=== PATIENT | female | born 1940 | race Caucasian/White ===

== ENCOUNTER 2020-02-04 04:36 | Emergency (ER) | payer MEDICARE, OTHER ==
[2020-02-04] MEDS ORDERED: Aspirin 81 MG Tab.Chew PO ONE (05:19)
--- NOTE | 2020-02-04 05:20 | EDM.PDOC ---
ED HPI GENERAL MEDICAL PROBLEM - General Chief Complaint: Chest Pain Stated Complaint: "dizzy and chest pain" Time Seen by Provider: 02/04/20 05:00 Source of Information: Reports: Patient History Limitations: Reports: No Limitations - History of Present Illness INITIAL COMMENTS - FREE TEXT/NARRATIVE: Patient presents to ER with complaints of chest pain and dizziness. States pain awoke her around 0100. Feels like "going to pass out". Rates pain a 10/ 10 to the midsternal area, gets worse when more lightheaded. Denies shortness of breath. States her CPAP hose had come off, not sure if associated with these symptoms. She states the pain and lightheadedness occurs together and once the pain passes, feels "fuzzy in the head". Has been eating and drinking well. Does take diuretics, has not noted any increase in edema. Had one syncopal episode in the past about 3 years ago but has not had issues since then. Onset: Today, Sudden Duration: Hour(s):, Constant Location: Reports: Chest Quality: Reports: Sharp Severity: Severe Worsens with: Reports: Movement Associated Symptoms: Reports: Chest Pain, Weakness, Other (lightheadedness). Denies: Confusion, Cough, Fever/Chills, Loss of Appetite, Nausea/Vomiting, Shortness of Breath - Related Data Allergies Allergy/AdvReac Type Severity Reaction Status Date / Time acetaminophen [From Tylenol] Allergy Muscle Verified 01/23/17 08:54 Weakness ciprofloxacin [From Cipro] Allergy Muscle Verified 01/23/17 08:54 Weakness fluocinonide Allergy Chills Verified 01/23/17 08:54 propoxyphene Allergy Chills Verified 01/23/17 08:54 Home Meds: Home Meds Aspirin [Halfprin] 81 mg PO DAILY 11/02/13 [History] Potassium Chloride 10 meq PO DAILY 11/02/13 [History] Torsemide 20 mg PO DAILY 01/23/17 [History] Febuxostat 40 mg PO DAILY 02/04/20 [History] Irbesartan 75 mg PO DAILY 02/04/20 [History] Rosuvastatin [Crestor] 10 mg PO DAILY 02/04/20 [History] calcitrioL [Calcitriol] 0.25 mcg PO DAILY 02/04/20 [History] Past Medical History - Past Health History Medical/Surgical History: Denies Medical/Surgical History Cardiovascular History: Reports: Hypertension - Past Surgical History Musculoskeletal Surgical History: Reports: Knee Replacement Social & Family History - Family History Family Medical History: Noncontributory - Tobacco Use Smoking Status *Q: Never Smoker ED ROS GENERAL - Review of Systems Review Of Systems: See Below Constitutional: Reports: Malaise, Weakness, Fatigue. Denies: Fever, Chills, Diaphoresis, Decreased Appetite HEENT: Reports: Vertigo. Denies: Ear Pain, Sinus Problem, Throat Pain Respiratory: Denies: Shortness of Breath, Cough Cardiovascular: Reports: Chest Pain, Edema, Lightheadedness Endocrine: Reports: Fatigue GI/Abdominal: Reports: Nausea. Denies: Abdominal Pain, Constipation, Diarrhea, Vomiting : Reports: No Symptoms Musculoskeletal: Reports: No Symptoms Skin: Reports: No Symptoms Neurological: Reports: Dizziness, Weakness ED EXAM, GENERAL - Physical Exam Exam: See Below Exam Limited By: No Limitations General Appearance: Alert, WD/WN, No Apparent Distress Ears: Normal External Exam, Normal TMs Nose: Normal Inspection, Normal Mucosa, No Blood Throat/Mouth: Normal Inspection, Normal Oropharynx Head: Normocephalic Neck: Normal Inspection, Supple, Non-Tender Respiratory/Chest: No Respiratory Distress, Lungs Clear, Normal Breath Sounds Cardiovascular: Regular Rate, Rhythm GI/Abdominal: Normal Bowel Sounds, Soft, Non-Tender Extremities: Normal Inspection, Pedal Edema (trace) Neurological: Alert, Oriented Skin Exam: Warm, Dry Course - Vital Signs Last Recorded V/S: Last Vital Signs Temp 97.3 F 02/04/20 07:20 Pulse 75 02/04/20 05:50 Resp 18 02/04/20 07:20 BP 151/64 H 02/04/20 07:20 Pulse Ox 100 02/04/20 07:20 Orthostatic Blood Pressure [ 162/84 Standing] Orthostatic Blood Pressure [ 164/79 Sitting] Orthostatic Blood Pressure [ 154/76 Supine] - Orders/Labs/Meds Orders: Active Orders 24 hr Category Date Time Status Cardiac Monitoring [RC] . DIRECTED Care 02/04/20 05:19 Active Orthostatic Vital Signs [RC] ASDIRECTED Care 02/04/20 05:50 Active Chest 2V [CR] Routine Exams 02/04/20 Taken Head wo Cont [CT] Stat Exams 02/04/20 05:17 Taken TROPONIN I [CHEM] Timed Lab 02/04/20 10:24 Received Sodium Chloride 0.9% [Normal Saline] 1,000 ml Med 02/04/20 06:00 Active IV ASDIRECTED EKG 12 Lead [EK] Routine Ther 02/04/20 10:00 Ordered Medication Orders Sodium Chloride (Normal Saline) 1,000 mls @ 100 mls/hr IV ASDIRECTED HARRY Last Admin: 02/04/20 06:30 Dose: 100 mls/hr Labs: Laboratory Tests 02/04/20 02/04/20 02/04/20 Range/Units 05:17 05:18 05:18 WBC 6.8 (5.0-10.0) 10^3/uL RBC 4.11 (4.00-5.50) 10^6/uL Hgb 11.9 L (12.0-16.0) g/dL Hct 35.3 L (37.0-47.0) % MCV 85.9 (82.0-94.0) fL MCH 29.0 (27.0-32.0) pg MCHC 33.7 (33.0-38.0) g/dL RDW Coeff of Enoc 13.9 (11.0-15.0) % Plt Count 195 (150-400) 10^3/uL Neut % (Auto) 60.5 (35-85) % Lymph % (Auto) 26.2 (10-55) % Lewis % (Auto) 9.1 (0-16) % Eos % (Auto) 3.5 (0-5) % Baso % (Auto) 0.7 (0-3) % Neut # (Auto) 4.12 (1.80-7.00) 10^3/uL Lymph # (Auto) 1.79 (1.00-4.80) 10^3/uL Lewis # (Auto) 0.62 (0.00-0.80) 10^3/uL Eos # (Auto) 0.24 (0.00-0.45) 10^3/uL Baso # (Auto) 0.05 10^3/uL PT 10.2 (9.7-12.3) SEC INR 1.01 (0.92-1.18) APTT 23.6 (23.2-32.3) SEC Sodium 138 (136-145) mEq/L Potassium 3.3 L (3.5-5.0) mEq/L Chloride 100 (98-106) mEq/L Carbon Dioxide 28 (21-32) mmol/L BUN 17 (7-18) mg/dL Creatinine 1.1 H (0.6-1.0) mg/dL Est Cr Clr Drug Dosing TNP Estimated GFR (MDRD) 48 L (>=60) mL/min Glucose 167 H (75-99) mg/dL Calcium 8.5 (8.4-10.1) mg/dL Lactate Dehydrogenase 181 (100-190) U/L Creatine Kinase 54 (21-215) U/L Troponin I < 0.017 (0.00-0.06) ng/mL Urine Color (YELLOW) Urine Appearance (CLEAR) Urine pH (4.5-8.0) Ur Specific [place] (1.003-1.020) Urine Protein (NEGATIVE) mg/dL Urine Glucose (UA) (NEGATIVE) mg/dL Urine Ketones (NEGATIVE) mg/dL Urine Occult Blood (NEGATIVE) Urine Nitrite (NEGATIVE) Urine Bilirubin (NEGATIVE) Urine Urobilinogen (0.2-1.0) EU/dL Ur Leukocyte Esterase (NEGATIVE) Urine RBC (0-5) /HPF Urine WBC (0-5) /HPF Ur Squamous Epith Cells (NOT SEEN) /HPF Urinalysis Comment 02/04/20 Range/Units 08:04 WBC (5.0-10.0) 10^3/uL RBC (4.00-5.50) 10^6/uL Hgb (12.0-16.0) g/dL Hct (37.0-47.0) % MCV (82.0-94.0) fL MCH (27.0-32.0) pg MCHC (33.0-38.0) g/dL RDW Coeff of Enoc (11.0-15.0) % Plt Count (150-400) 10^3/uL Neut % (Auto) (35-85) % Lymph % (Auto) (10-55) % Lewis % (Auto) (0-16) % Eos % (Auto) (0-5) % Baso % (Auto) (0-3) % Neut # (Auto) (1.80-7.00) 10^3/uL Lymph # (Auto) (1.00-4.80) 10^3/uL Lewis # (Auto) (0.00-0.80) 10^3/uL Eos # (Auto) (0.00-0.45) 10^3/uL Baso # (Auto) 10^3/uL PT (9.7-12.3) SEC INR (0.92-1.18) APTT (23.2-32.3) SEC Sodium (136-145) mEq/L Potassium (3.5-5.0) mEq/L Chloride (98-106) mEq/L Carbon Dioxide (21-32) mmol/L BUN (7-18) mg/dL Creatinine (0.6-1.0) mg/dL Est Cr Clr Drug Dosing Estimated GFR (MDRD) (>=60) mL/min Glucose (75-99) mg/dL Calcium (8.4-10.1) mg/dL Lactate Dehydrogenase (100-190) U/L Creatine Kinase (21-215) U/L Troponin I (0.00-0.06) ng/mL Urine Color Yellow (YELLOW) Urine Appearance Clear (CLEAR) Urine pH 6.0 (4.5-8.0) Ur Specific [place] 1.025 H (1.003-1.020) Urine Protein Negative (NEGATIVE) mg/dL Urine Glucose (UA) Negative (NEGATIVE) mg/dL Urine Ketones Negative (NEGATIVE) mg/dL Urine Occult Blood Negative (NEGATIVE) Urine Nitrite Negative (NEGATIVE) Urine Bilirubin Negative (NEGATIVE) Urine Urobilinogen 0.2 (0.2-1.0) EU/dL Ur Leukocyte Esterase Small H (NEGATIVE) Urine RBC Not seen (0-5) /HPF Urine WBC 5-10 H (0-5) /HPF Ur Squamous Epith Cells Few H (NOT SEEN) /HPF Urinalysis Comment Meds: Medications Generic Name Dose Route Start Last Admin Trade Name Freq PRN Reason Stop Dose Admin Sodium Chloride 1,000 mls @ 100 mls/hr 02/04/20 06:00 02/04/20 06:30 Normal Saline IV 100 mls/hr ASDIRECTED HARRY Administration Discontinued Medications Generic Name Dose Route Start Last Admin Trade Name Freq PRN Reason Stop Dose Admin Aspirin 324 mg 02/04/20 05:19 02/04/20 05:34 Aspirin PO 02/04/20 05:20 324 mg ONETIME ONE Administration - Re-Assessments/Exams Free Text/Narrative Re-Assessment/Exam: 02/04/20 10:48 Patient is feeling better, no further chest pain. Still "feels a little foggy in the head". Has been up to the bathroom and tolerating well. Head CT was negative. 1055- Troponin remains negative. patient would like to be discharged home. Will have cardiolyte next week. Discussed slow cautious movements. Push fluids. Return to ER if becomes more symptomatic Departure - Departure Time of Disposition: 10:58 Disposition: Home, Self-Care 01 Condition: Fair Clinical Impression: Atypical chest pain, Lightheadedness Referrals: Mariia Rios FIXTURE MAKER [Primary Care Provider] - Forms: ED Department Discharge Additional Instructions: 1. Rest 2. Slow, cautious movements 3. Push fluids 4. Cardiolyte stress test next , February 09 at 0700 5. Follow up with Mariia on February 07 at 2 pm 6. Return to the ER if develop further chest pain, shortness of breath or ongoing lightheadedness. Sepsis Event Note (ED) - Focused Exam Vital Signs: Vital Signs Temp Pulse Resp BP Pulse Ox 02/04/20 07:20 97.3 F 18 151/64 H 100 02/04/20 05:50 97.6 F 75 20 139/68 99 - My Orders Last 24 Hours: My Active Orders 02/04/20 Chest 2V [CR] Routine 02/04/20 05:17 Head wo Cont [CT] Stat 02/04/20 05:19 Cardiac Monitoring [RC] . DIRECTED 02/04/20 05:50 Orthostatic Vital Signs [RC] ASDIRECTED 02/04/20 06:00 Sodium Chloride 0.9% [Normal Saline] 1,000 ml IV ASDIRECTED 02/04/20 10:00 EKG 12 Lead [EK] Routine 02/04/20 10:24 TROPONIN I [CHEM] Timed - Assessment/Plan Last 24 Hours: My Active Orders 02/04/20 Chest 2V [CR] Routine 02/04/20 05:17 Head wo Cont [CT] Stat 02/04/20 05:19 Cardiac Monitoring [RC] . DIRECTED 02/04/20 05:50 Orthostatic Vital Signs [RC] ASDIRECTED 06/12/20 06:00 Sodium Chloride 0.9% [Normal Saline] 1,000 ml IV ASDIRECTED 02/04/20 10:00 EKG 12 Lead [EK] Routine 02/04/20 10:24 TROPONIN I [CHEM] Timed
[2020-02-04 05:33] LABS: PTT,PARTIAL THROMBOPLSTIN TIME 23.6 SEC (23.2-32.3)
[2020-02-04 05:36] LABS: CHLORIDE,CL 100 mEq/L (98-106); SODIUM,NA 138 mEq/L (136-145)
[2020-02-04] MEDS ORDERED: Sodium Chloride 0.9% 1,000 ML IV SCH (06:00)
[2020-02-04 06:26] VITALS: PULSE 75
[2020-02-04 07:21] VITALS: BP 151/64
== END 2020-02-04 11:25 | disposition home or self-care (01) ==
LOC: CC.ED 04:36
DX: R07.89 Other chest pain (principal); R42 Dizziness and giddiness; Z88.6 Allergy status to analgesic agent; Z88.1 Allergy status to other antibiotic agents; Z88.8 Allergy status to other drugs, medicaments and biological substances; Z79.82 Long term (current) use of aspirin; Z79.899 Other long term (current) drug therapy
CPT/HCPCS: 36415; 70450; 71046; 80048; 81001; 82550; 83615; 84484; 85025; 85610; 85730; 93005; 96360; 96361; 99284; 99285; A9270; J7030; 93010

== ENCOUNTER 2020-08-15 18:04 | Emergency (ER) | payer MEDICARE, OTHER ==
[2020-08-15 18:09] VITALS: BP 184/89; PULSE 70
--- NOTE | 2020-08-15 19:00 | EDM.PDOC ---
ED HPI GENERAL MEDICAL PROBLEM - General Chief Complaint: General Stated Complaint: dizzy Time Seen by Provider: 08/15/20 18:25 Source of Information: Reports: Patient History Limitations: Reports: No Limitations - History of Present Illness INITIAL COMMENTS - FREE TEXT/NARRATIVE: Tasia is a 79 yo female who presents to the ED, via private vehicle, dropped off by a family member with concerns of being lightheaded. She states symptoms started late this morning and haven't seemed to improved at all. States upon walking symptoms are the worst. While at rest symptoms do improve but are still present. She denies any headaches and admits she has never had a headache all her life. Does describe a fullness sensation in her head that started with the dizziness. Denies any sinus congestion or recent cold symptoms. States she has a history of high blood pressure but does take medicine for it. Denies any ringing in her ears. Denies any chest pain or palpitations. States she did have a little bit of a sore neck. No shortness of breath. Denies any changes in bowel habits, no abdominal complaints. No UTI symptoms or history. - Related Data Allergies Allergy/AdvReac Type Severity Reaction Status Date / Time acetaminophen [From Tylenol] AdvReac Muscle Verified 08/15/20 18:15 Weakness ciprofloxacin [From Cipro] AdvReac Muscle Verified 08/15/20 18:15 Weakness fluocinonide AdvReac Chills Verified 08/15/20 18:15 propoxyphene AdvReac Chills Verified 08/15/20 18:15 Home Meds: Home Meds Aspirin [Halfprin] 81 mg PO DAILY 11/02/13 [History] Potassium Chloride 10 meq PO DAILY 11/02/13 [History] Torsemide 20 mg PO DAILY 01/23/17 [History] Irbesartan 75 mg PO DAILY 02/04/20 [History] Rosuvastatin [Crestor] 10 mg PO DAILY 02/04/20 [History] calcitrioL [Calcitriol] 0.25 mcg PO DAILY 02/04/20 [History] Alendronate Sodium 70 mg PO DAILY 02/10/20 [History] Magnesium Oxide 500 mg PO DAILY 02/10/20 [History] Past Medical History - Past Health History Medical/Surgical History: Denies Medical/Surgical History HEENT History: Reports: Allergic Rhinitis, Cataract, Impaired Vision Cardiovascular History: Reports: High Cholesterol, Hypertension Respiratory History: Reports: None, Sleep Apnea Gastrointestinal History: Reports: Chronic Constipation, Irritable Bowel Syndrome Genitourinary History: Reports: Renal Disease Musculoskeletal History: Reports: Gout, Osteoporosis Endocrine/Metabolic History: Reports: Vitamin D Deficiency - Past Surgical History HEENT Surgical History: Reports: Cataract Surgery Cardiovascular Surgical History: Reports: Pacer GI Surgical History: Reports: Appendectomy, Hernia, Abdominal Neurological Surgical History: Reports: C-Spine Musculoskeletal Surgical History: Reports: Knee Replacement Other Musculoskeletal Surgeries/Procedures:: BACK SURGERY Social & Family History - Family History Family Medical History: No Pertinent Family History - Tobacco Use Tobacco Use Status *Q: Never Tobacco User Second Hand Smoke Exposure: No - Caffeine Use Caffeine Use: Reports: None - Recreational Drug Use Recreational Drug Use: No ED ROS GENERAL - Review of Systems Review Of Systems: Comprehensive ROS is negative, except as noted in HPI. Constitutional: Reports: No Symptoms HEENT: Denies: Vertigo, Vision Change Respiratory: Reports: No Symptoms Cardiovascular: Reports: Lightheadedness. Denies: Palpitations GI/Abdominal: Reports: No Symptoms : Reports: No Symptoms Musculoskeletal: Reports: No Symptoms Skin: Reports: No Symptoms ED EXAM, GENERAL - Physical Exam Exam: See Below Exam Limited By: No Limitations General Appearance: Alert, WD/WN, No Apparent Distress Eye Exam: Bilateral Eye: EOMI, Nystagmus, PERRL Ears: Normal External Exam, Normal Canal, Normal TMs Nose: Normal Inspection, No Blood Throat/Mouth: Normal Inspection, Normal Lips, Normal Teeth, Normal Oropharynx, No Airway Compromise Head: Atraumatic, Normocephalic Neck: Normal Inspection, Supple Respiratory/Chest: No Respiratory Distress, Lungs Clear, Normal Breath Sounds, No Accessory Muscle Use Cardiovascular: Regular Rate, Rhythm, No Murmur Peripheral Pulses: 2+: Dorsalis Pedis (L), Dorsalis Pedis (R) GI/Abdominal: Normal Bowel Sounds, Soft, No Distention Extremities: Normal Inspection, Non-Tender Neurological: Alert, Oriented, Normal Cognition, No Motor/Sensory Deficits Psychiatric: Normal Affect, Normal Mood Skin Exam: Warm, Dry, Intact, Normal Color, No Rash #1 Interpretation Rhythm: Other (electronic atrial pacemaker) Comparison: NA - No Prior EKG Course - Vital Signs Last Recorded V/S: Last Vital Signs Temp 98 F 08/15/20 18:05 Pulse 70 08/15/20 18:05 Resp 20 08/15/20 18:05 BP 184/89 H 08/15/20 18:05 Pulse Ox - Orders/Labs/Meds Orders: Active Orders 24 hr Category Date Time Status Head wo Cont [CT] Stat Exams 08/15/20 18:42 Taken CULTURE URINE [RM] Stat Lab 08/15/20 19:25 Received Labs: Laboratory Tests 08/15/20 08/15/20 08/15/20 Range/Units 19:25 19:25 19:25 WBC 8.2 (5.0-10.0) 10^3/uL RBC 4.29 (4.00-5.50) 10^6/uL Hgb 12.3 (12.0-16.0) g/dL Hct 36.0 L (37.0-47.0) % MCV 83.9 (82.0-94.0) fL MCH 28.7 (27.0-32.0) pg MCHC 34.2 (33.0-38.0) g/dL RDW Coeff of Enoc 13.9 (11.0-15.0) % Plt Count 219 (150-400) 10^3/uL Neut % (Auto) 57.6 (35-85) % Lymph % (Auto) 31.5 (10-55) % [place] % (Auto) 8.0 (0-16) % Eos % (Auto) 2.3 (0-5) % Baso % (Auto) 0.6 (0-3) % Neut # (Auto) 4.71 (1.80-7.00) 10^3/uL Lymph # (Auto) 2.57 (1.00-4.80) 10^3/uL [place] # (Auto) 0.65 (0.00-0.80) 10^3/uL Eos # (Auto) 0.19 (0.00-0.45) 10^3/uL Baso # (Auto) 0.05 10^3/uL Sodium 134 L (136-145) mEq/L Potassium 3.7 (3.5-5.0) mEq/L Chloride 96 L (98-106) mEq/L Carbon Dioxide 27 (21-32) mmol/L BUN 23 H (7-18) mg/dL Creatinine 1.1 H (0.6-1.0) mg/dL Est Cr Clr Drug Dosing 35.81 mL/min Estimated GFR (MDRD) 48 L (>=60) mL/min Glucose 196 H (75-99) mg/dL Calcium 9.8 (8.4-10.1) mg/dL Total Bilirubin 0.5 (0.0-1.0) mg/dL AST 13 L (15-37) U/L ALT 20 (12-78) U/L Alkaline Phosphatase 63 (46-116) U/L Creatine Kinase 39 (21-215) U/L Troponin I < 0.017 (0.00-0.06) ng/mL Total Protein 7.8 (6.4-8.2) g/dL Albumin 3.8 (3.4-5.0) g/dL Urine Color Yellow (YELLOW) Urine Appearance Cloudy (CLEAR) Urine pH 5.5 (4.5-8.0) Ur Specific [place] 1.020 (1.003-1.020) Urine Protein Negative (NEGATIVE) mg/dL Urine Glucose (UA) 250 H (NEGATIVE) mg/dL Urine Ketones Negative (NEGATIVE) mg/dL Urine Occult Blood Negative (NEGATIVE) Urine Nitrite Negative (NEGATIVE) Urine Bilirubin Negative (NEGATIVE) Urine Urobilinogen 0.2 (0.2-1.0) EU/dL Ur Leukocyte Esterase Moderate H (NEGATIVE) U Hyaline Cast (Auto) Few H (NOT SEEN) /LPF Urine RBC 0-5 (0-5) /HPF Urine WBC 20-30 H (0-5) /HPF Ur Epithelial Cells Few H (NOT SEEN) /HPF Urine Bacteria Moderate H (NOT SEEN) /HPF Departure - Departure Time of Disposition: 19:55 Disposition: Home, Self-Care 01 Clinical Impression: UTI, Urinary tract infectious disease, Lightheadedness - Discharge Information Instructions: Urinary Tract Infection, Adult, [id number], Dizziness, [id number] Referrals: Mariia Rios INTERVENTIONAL RADIOLOGIST [Primary Care Provider] - Forms: ED Department Discharge Additional Instructions: 1) Macrobid 100mg twice a day for 7 days 2) Push fluids 3) Refrain from taking baths, recommend showering as long as steady of feet 4) If any fevers, worsening of symptoms, or any concerns at all please return to ED for re-evaluation 5) Sepsis Event Note (ED) - Evaluation Sepsis Screening Result: No Definite Risk - Focused Exam Vital Signs: Vital Signs Temp Pulse Resp BP 08/15/20 18:05 98 F 70 20 184/89 H - Problem List & Annotations (1) Lightheadedness SNOMED Code(s): 644119203 Code(s): R42 - DIZZINESS AND GIDDINESS Status: Acute Current Visit: Yes (2) UTI, Urinary tract infectious disease SNOMED Code(s): 51618156 Code(s): N39.0 - URINARY TRACT INFECTION, SITE NOT SPECIFIED Status: Acute Current Visit: Yes - My Orders Last 24 Hours: My Active Orders 08/15/20 18:42 Head wo Cont [CT] Stat 08/15/20 19:25 CULTURE URINE [RM] Stat - Assessment/Plan Last 24 Hours: My Active Orders 08/15/20 18:42 Head wo Cont [CT] Stat 08/15/20 19:25 CULTURE URINE [RM] Stat Plan: Urinalysis was positive. Culture ordered. Labs otherwise unremarkable. EKG showed atrial paced rhythm. CT head negative. Will start oral antibiotic. Patient declined observation stay today. Requests to be discharged home and admitted she felt safe at home. Signs and symptoms to watch for discussed into detail.
[2020-08-15] MEDS ORDERED: Nitrofurantoin Monohydrate/Macrocrystalline 100 MG Cap ONE (19:41)
[2020-08-15 19:48] LABS: CHLORIDE,CL 96 mEq/L (98-106); SODIUM,NA 134 mEq/L (136-145)
[2020-08-15] MEDS: Take Home: Nitrofurantoin Monohydrate/Macrocrystalline 100 MG, 2 Cap Pack PO ONE (20:01)
== END 2020-08-15 20:03 | disposition home or self-care (01) ==
LOC: CC.ED 18:04
DX: R42 Dizziness and giddiness (principal); N39.0 Urinary tract infection, site not specified; E78.00 Pure hypercholesterolemia, unspecified; I10 Essential (primary) hypertension; M10.9 Gout, unspecified; Z79.82 Long term (current) use of aspirin; Z79.899 Other long term (current) drug therapy; Z88.6 Allergy status to analgesic agent; Z88.1 Allergy status to other antibiotic agents; Z88.8 Allergy status to other drugs, medicaments and biological substances
CPT/HCPCS: 36415; 70450; 80053; 81001; 82550; 84484; 85025; 87086; 93005; 99284; 99284-25; A9270-GY

== ENCOUNTER 2023-10-02 08:49 | Emergency (ER) | payer MEDICARE, OTHER ==
[2023-10-02 08:53] VITALS: BP 178/76; PULSE 66
[2023-10-02] MEDS: Ketorolac 30 MG/ML SDV IM ONE (09:22)
== END 2023-10-02 10:04 | disposition home or self-care (01) ==
LOC: CC.ED 08:49
DX: M54.16 Radiculopathy, lumbar region (principal); I10 Essential (primary) hypertension; E78.00 Pure hypercholesterolemia, unspecified; Z88.1 Allergy status to other antibiotic agents; Z88.5 Allergy status to narcotic agent; Z88.6 Allergy status to analgesic agent
CPT/HCPCS: 96372; 99283; J1885

== ENCOUNTER 2024-08-23 11:30 | Emergency (ER) | payer MEDICARE, OTHER ==
[2024-08-23 12:18] LABS: BASOPHILS ABSOLUTE AUTO 0.06 10^3/uL (0.00-0.50); BASOPHILS PERCENT AUTO 0.7 % (0-1); EOSINOPHILS ABSOLUTE AUTO 0.22 10^3/uL (0.00-1.50); EOSINOPHILS PERCENT AUTO 2.6 % (0-6); HEMATOCRIT 37.6 % (37.0-47.0); HEMOGLOBIN 12.4 g/dL (12.0-16.0); IMMATURE GRAN ABSOLUTE AUTO 0.01 10^3/uL (0.00-0.49); IMMATURE GRAN PERCENT AUTO 0.1 % (0.0-4.9); LYMPHOCYTES ABSOLUTE AUTO 2.14 10^3/uL (0.60-5.00); LYMPHOCYTES PERCENT AUTO 24.8 % (24-44); MEAN CORPUSCULAR HEMOGLOBIN 28.9 pg (27.0-32.0); MEAN CORPUSCULAR VOLUME 87.6 fL (83.0-97.0); MONOCYTES ABSOLUTE AUTO 0.75 10^3/uL (0.00-1.50); MONOCYTES PERCENT AUTO 8.7 % (0-10); NEUTROPHILS ABSOLUTE AUTO 5.44 x10^3/uL (1.80-8.00); NEUTROPHILS PERCENT AUTO 63.1 % (41-71); PLATELET COUNT,PLT 191 10^3/uL (150-400); RED BLOOD CELL COUNT 4.29 x10^6/uL (4.00-5.50); WHITE BLOOD CELL COUNT,WBC 8.6 10^3/uL (4.0-11.0)
[2024-08-23 12:31] LABS: ALBUMIN 3.6 g/dL (3.4-5.0); BILIRUBIN TOTAL 0.5 mg/dL (0.0-1.0); C-REACTIVE PROTEIN 1.73 mg/dL (<=0.50); CALCIUM 9.7 mg/dL (8.4-10.1); CREATININE 1.1 mg/dL (0.6-1.0); EST CRCL DRUG DOSING (CG) 32.06 mL/min; POTASSIUM,K 4.4 mEq/L (3.5-5.0); PROTEIN TOTAL,TP 7.3 g/dL (6.4-8.2)
[2024-08-23] MEDS: Morphine 2 MG/ML SYRINGE IVPUSH ONE (12:32)
[2024-08-23] MEDS: Ondansetron 4 MG/2 ML SDV IVPUSH PRN (12:33)
[2024-08-23] MEDS: Sodium Chloride 0.9% 1,000 ML IV ONE (12:41)
[2024-08-23 12:44] VITALS: BP 154/72; PULSE 79
[2024-08-23] MEDS: Iopamidol 755 Mg/ML 100 ML Bottle IVPUSH ONE (12:57)
[2024-08-23 15:09] LABS: APPEARANCE,URINE CLEAR (CLEAR); BILIRUBIN,URINE NEGATIVE (NEGATIVE); COLOR,URINE YELLOW (YELLOW); GLUCOSE,URINE 500 mg/dL (NEGATIVE); KETONES,URINE NEGATIVE (NEGATIVE); LEUKOCYTE ESTERASE,URINE NEGATIVE (NEGATIVE); NITRITE,URINE NEGATIVE (NEGATIVE); OCCULT BLOOD,URINE NEGATIVE (NEGATIVE); PROTEIN,URINE NEGATIVE (NEGATIVE); UROBILINOGEN,URINE 0.2 EU/dL (0.2-1.0)
== END 2024-08-23 15:51 | disposition home or self-care (01) ==
LOC: CC.ED 11:30
DX: K57.32 Diverticulitis of large intestine without perforation or abscess without bleeding (principal); I10 Essential (primary) hypertension; E78.00 Pure hypercholesterolemia, unspecified; Z90.49 Acquired absence of other specified parts of digestive tract; Z88.6 Allergy status to analgesic agent; Z88.8 Allergy status to other drugs, medicaments and biological substances; Z79.82 Long term (current) use of aspirin; Z79.84 Long term (current) use of oral hypoglycemic drugs; Z79.899 Other long term (current) drug therapy
CPT/HCPCS: 36415; 74177; 80053; 81003; 83605; 83690; 83735; 85025; 86140; 87045; 87046; 87493; 96361; 96374; 96375; 99284; 99284-25; J2270; J2405; J7030; Q9967

== ENCOUNTER 2024-08-31 12:41 | Inpatient (IN) | payer MEDICARE, OTHER ==
[2024-08-31] MEDS ORDERED: Sodium Chloride 0.9% 10 ML Syringe FLUSH PRN (12:58)
[2024-08-31 13:21] LABS: BASOPHILS ABSOLUTE AUTO 0.06 10^3/uL (0.00-0.50); BASOPHILS PERCENT AUTO 0.8 % (0-1); EOSINOPHILS ABSOLUTE AUTO 0.13 10^3/uL (0.00-1.50); EOSINOPHILS PERCENT AUTO 1.7 % (0-6); HEMATOCRIT 38.3 % (37.0-47.0); HEMOGLOBIN 12.8 g/dL (12.0-16.0); IMMATURE GRAN ABSOLUTE AUTO 0.02 10^3/uL (0.00-0.49); IMMATURE GRAN PERCENT AUTO 0.3 % (0.0-4.9); LYMPHOCYTES ABSOLUTE AUTO 2.28 10^3/uL (0.60-5.00); LYMPHOCYTES PERCENT AUTO 29.2 % (24-44); MEAN CORPUSCULAR HEMOGLOBIN 28.7 pg (27.0-32.0); MEAN CORPUSCULAR HGB CONC 33.4 g/dL (32.0-36.0); MEAN CORPUSCULAR VOLUME 85.9 fL (83.0-97.0); MONOCYTES ABSOLUTE AUTO 0.61 10^3/uL (0.00-1.50); MONOCYTES PERCENT AUTO 7.8 % (0-10); NEUTROPHILS ABSOLUTE AUTO 4.72 x10^3/uL (1.80-8.00); NEUTROPHILS PERCENT AUTO 60.2 % (41-71); PLATELET COUNT,PLT 261 10^3/uL (150-400); RED BLOOD CELL COUNT 4.46 x10^6/uL (4.00-5.50); WHITE BLOOD CELL COUNT,WBC 7.8 10^3/uL (4.0-11.0)
[2024-08-31 13:41] LABS: ALANINE AMINOTRANSFERASE,ALT 27 U/L (12-78); ALBUMIN 4.2 g/dL (3.4-5.0); ALKALINE PHOSPHATASE 51 U/L (46-116); ASPARTATE AMNIOTRANSFERASE,AST 29 U/L (15-37); BILIRUBIN TOTAL 0.5 mg/dL (0.0-1.0); BLOOD UREA NITROGEN,BUN 22 mg/dL (7-18); CALCIUM 9.6 mg/dL (8.4-10.1); CARBON DIOXIDE,CO2 30 mmol/L (21-32); CHLORIDE,CL 98 mEq/L (98-106); CREATININE 1.1 mg/dL (0.6-1.0); GLUCOSE RANDOM 100 mg/dL (75-99); LIPASE 41 U/L (16-77); POTASSIUM,K 3.5 mEq/L (3.5-5.0); PROTEIN TOTAL,TP 7.9 g/dL (6.4-8.2); SODIUM,NA 139 mEq/L (136-145)
[2024-08-31 13:42] LABS: C-REACTIVE PROTEIN < 0.50 mg/dL (<=0.50); ESTIMATED GFR 50 mL/min (>=60)
[2024-08-31 13:43] LABS: LACTIC ACID 1.6 mmol/L (0.4-2.0)
[2024-08-31] MEDS ORDERED: Ondansetron 4 MG/2 ML SDV IV PRN (14:10)
[2024-08-31] MEDS ORDERED: oxyCODONE 5 MG Tab PO PRN (14:10)
[2024-08-31] MEDS ORDERED: Naloxone 2 MG/2 ML Syringe IVPUSH PRN (14:10)
[2024-08-31] MEDS ORDERED: Fluticasone NASAL Spray 16 GM Bottle NASBOTH PRN (14:18)
[2024-08-31] MEDS: metroNIDAZOLE/Normal Saline 500 MG in Premix Bag 1 BAG IV SCH (14:37)
[2024-08-31] MEDS: Cefepime 2 GM Vial IVPUSH SCH (15:57)
[2024-08-31 16:19] LABS: APPEARANCE,URINE CLEAR (CLEAR); BILIRUBIN,URINE NEGATIVE (NEGATIVE); COLOR,URINE YELLOW (YELLOW); GLUCOSE,URINE 500 mg/dL (NEGATIVE); KETONES,URINE NEGATIVE (NEGATIVE); LEUKOCYTE ESTERASE,URINE TRACE (NEGATIVE); NITRITE,URINE NEGATIVE (NEGATIVE); OCCULT BLOOD,URINE NEGATIVE (NEGATIVE); PH,URINE 5.5 (4.5-8.0); PROTEIN,URINE NEGATIVE (NEGATIVE); UROBILINOGEN,URINE 0.2 EU/dL (0.2-1.0)
[2024-08-31 16:24] LABS: RBC,URINE NOT SEEN /HPF (0-5); SQUAMOUS EPITHELIAL CELLS,UR OCCASIONAL /HPF (NOT SEEN); WBC,URINE 0-5 /HPF (0-5)
[2024-08-31 16:25] LABS: BACTERIA,URINE NOT SEEN /HPF (NOT SEEN)
[2024-09-01] MEDS: Cholecalciferol (Vitamin D3) 25 MCG Tab PO SCH (07:46)
[2024-09-01] MEDS: Enoxaparin 40 MG/0.4 ML Syringe SUBCUT SCH (07:46)
[2024-09-01] MEDS: Calcium Carbonate/Vitamin D3 1250 MG-5 MCG Tab PO SCH (07:47)
[2024-09-01] MEDS: metFORMIN 500 MG Tab PO SCH (07:47)
[2024-09-01] MEDS: Allopurinol 100 MG Tab PO SCH (07:47)
[2024-09-01] MEDS: Aspirin 81 MG Tab.EC PO SCH (07:47)
[2024-09-01] MEDS: Rosuvastatin 10 MG Tab PO SCH (07:47)
[2024-09-01] MEDS: Calcitriol 0.25 MCG Cap PO SCH (07:48)
[2024-09-01] MEDS: Torsemide 20 MG Tab PO SCH (07:48)
[2024-09-01] MEDS: Lactobacillus Rhamnosus GG (Probiotic) Cap PO SCH (07:48)
[2024-09-01] MEDS: Empagliflozin 10 MG Tab PO SCH (07:48)
[2024-09-01] MEDS: Losartan 25 MG Tab PO SCH (07:48)
[2024-09-01] MEDS: Magnesium Oxide 400 MG Tab PO SCH (07:48)
[2024-09-01] MEDS: Potassium Chloride 10 MEQ Tab.ER PO SCH (07:48)
[2024-09-01 07:56] LABS: BASOPHILS ABSOLUTE AUTO 0.04 10^3/uL (0.00-0.50); BASOPHILS PERCENT AUTO 0.5 % (0-1); EOSINOPHILS ABSOLUTE AUTO 0.15 10^3/uL (0.00-1.50); HEMATOCRIT 37.8 % (37.0-47.0); HEMOGLOBIN 12.8 g/dL (12.0-16.0); LYMPHOCYTES ABSOLUTE AUTO 1.69 10^3/uL (0.60-5.00); MEAN CORPUSCULAR HEMOGLOBIN 29.1 pg (27.0-32.0); MEAN CORPUSCULAR HGB CONC 33.9 g/dL (32.0-36.0); MEAN CORPUSCULAR VOLUME 85.9 fL (83.0-97.0); MONOCYTES ABSOLUTE AUTO 0.54 10^3/uL (0.00-1.50); MONOCYTES PERCENT AUTO 7.3 % (0-10); NEUTROPHILS ABSOLUTE AUTO 4.94 x10^3/uL (1.80-8.00); NEUTROPHILS PERCENT AUTO 67.2 % (41-71); PLATELET COUNT,PLT 250 10^3/uL (150-400); WHITE BLOOD CELL COUNT,WBC 7.4 10^3/uL (4.0-11.0)
[2024-09-01] MEDS ORDERED: Non-Formulary Medication 1 Each (Terbinafine Hcl [Terbinafine Hcl] 250 MG Tablet) PO SCH (08:00)
[2024-09-01] MEDS ORDERED: metFORMIN 500 MG Tab PO SCH (08:00)
[2024-09-01 08:21] LABS: ALANINE AMINOTRANSFERASE,ALT 29 U/L (12-78); ALBUMIN 3.8 g/dL (3.4-5.0); ALKALINE PHOSPHATASE 51 U/L (46-116); ASPARTATE AMNIOTRANSFERASE,AST 29 U/L (15-37); BILIRUBIN TOTAL 0.6 mg/dL (0.0-1.0); BLOOD UREA NITROGEN,BUN 16 mg/dL (7-18); CALCIUM 9.2 mg/dL (8.4-10.1); CARBON DIOXIDE,CO2 30 mmol/L (21-32); CHLORIDE,CL 101 mEq/L (98-106); CREATININE 1.1 mg/dL (0.6-1.0); EST CRCL DRUG DOSING (CG) 31.49 mL/min; GLUCOSE RANDOM 124 mg/dL (75-99); POTASSIUM,K 4.6 mEq/L (3.5-5.0); PROTEIN TOTAL,TP 7.3 g/dL (6.4-8.2); SODIUM,NA 139 mEq/L (136-145)
[2024-09-01 08:40] LABS: C-REACTIVE PROTEIN < 0.50 mg/dL (<=0.50); ESTIMATED GFR 50 mL/min (>=60)
[2024-09-02 08:07] LABS: BASOPHILS ABSOLUTE AUTO 0.05 10^3/uL (0.00-0.50); BASOPHILS PERCENT AUTO 0.5 % (0-1); EOSINOPHILS ABSOLUTE AUTO 0.07 10^3/uL (0.00-1.50); EOSINOPHILS PERCENT AUTO 0.7 % (0-6); HEMATOCRIT 39.1 % (37.0-47.0); HEMOGLOBIN 13.1 g/dL (12.0-16.0); IMMATURE GRAN ABSOLUTE AUTO 0.02 10^3/uL (0.00-0.49); IMMATURE GRAN PERCENT AUTO 0.2 % (0.0-4.9); LYMPHOCYTES ABSOLUTE AUTO 2.37 10^3/uL (0.60-5.00); LYMPHOCYTES PERCENT AUTO 24.1 % (24-44); MEAN CORPUSCULAR HEMOGLOBIN 28.7 pg (27.0-32.0); MEAN CORPUSCULAR HGB CONC 33.5 g/dL (32.0-36.0); MEAN CORPUSCULAR VOLUME 85.7 fL (83.0-97.0); MONOCYTES ABSOLUTE AUTO 0.73 10^3/uL (0.00-1.50); MONOCYTES PERCENT AUTO 7.4 % (0-10); NEUTROPHILS ABSOLUTE AUTO 6.61 x10^3/uL (1.80-8.00); NEUTROPHILS PERCENT AUTO 67.1 % (41-71); PLATELET COUNT,PLT 259 10^3/uL (150-400); RED BLOOD CELL COUNT 4.56 x10^6/uL (4.00-5.50); WHITE BLOOD CELL COUNT,WBC 9.9 10^3/uL (4.0-11.0)
[2024-09-02 08:38] LABS: ALBUMIN 3.8 g/dL (3.4-5.0); BILIRUBIN TOTAL 0.7 mg/dL (0.0-1.0); C-REACTIVE PROTEIN 1.62 mg/dL (<=0.50); CALCIUM 9.4 mg/dL (8.4-10.1); CREATININE 1.1 mg/dL (0.6-1.0); EST CRCL DRUG DOSING (CG) 31.49 mL/min; PROTEIN TOTAL,TP 7.6 g/dL (6.4-8.2)
[2024-09-03] MEDS: HYDROmorphone 0.5 MG/0.5 ML Syringe IVPUSH PRN (04:10)
[2024-09-03] MEDS: Sodium Chloride 0.9% 250 ML IV SCH (07:33)
[2024-09-03 07:35] LABS: BASOPHILS ABSOLUTE AUTO 0.06 10^3/uL (0.00-0.50); BASOPHILS PERCENT AUTO 0.8 % (0-1); EOSINOPHILS ABSOLUTE AUTO 0.14 10^3/uL (0.00-1.50); EOSINOPHILS PERCENT AUTO 1.9 % (0-6); HEMATOCRIT 37.9 % (37.0-47.0); IMMATURE GRAN ABSOLUTE AUTO 0.02 10^3/uL (0.00-0.49); IMMATURE GRAN PERCENT AUTO 0.3 % (0.0-4.9); LYMPHOCYTES ABSOLUTE AUTO 1.97 10^3/uL (0.60-5.00); LYMPHOCYTES PERCENT AUTO 27.4 % (24-44); MEAN CORPUSCULAR HEMOGLOBIN 29.1 pg (27.0-32.0); MEAN CORPUSCULAR HGB CONC 34.3 g/dL (32.0-36.0); MEAN CORPUSCULAR VOLUME 84.8 fL (83.0-97.0); MONOCYTES ABSOLUTE AUTO 0.56 10^3/uL (0.00-1.50); MONOCYTES PERCENT AUTO 7.8 % (0-10); NEUTROPHILS ABSOLUTE AUTO 4.44 x10^3/uL (1.80-8.00); NEUTROPHILS PERCENT AUTO 61.8 % (41-71); PLATELET COUNT,PLT 246 10^3/uL (150-400); RED BLOOD CELL COUNT 4.47 x10^6/uL (4.00-5.50); WHITE BLOOD CELL COUNT,WBC 7.2 10^3/uL (4.0-11.0)
[2024-09-03 07:38] LABS: ALBUMIN 3.6 g/dL (3.4-5.0); BILIRUBIN TOTAL 0.8 mg/dL (0.0-1.0); C-REACTIVE PROTEIN 3.63 mg/dL (<=0.50); EST CRCL DRUG DOSING (CG) 34.64 mL/min; POTASSIUM,K 3.3 mEq/L (3.5-5.0); PROTEIN TOTAL,TP 7.4 g/dL (6.4-8.2)
[2024-09-03] MEDS ORDERED: Lidocaine 2% 20 ML MDV ONE (07:40)
[2024-09-03] MEDS ORDERED: Propofol 200 MG/20 ML SDV ONE (07:40)
[2024-09-03] MEDS ORDERED: fentaNYL 50 MCG/ML SDV ONE (07:40)
[2024-09-03] MEDS: Ondansetron 4 MG Tab.DIS PO PRN (12:36)
[2024-09-03 13:15] VITALS: BP 136/61; PULSE 67
[2024-09-03] MEDS: Potassium Chloride 20 MEQ Tab.ER PO ONE (13:17)
== END 2024-09-03 14:15 | disposition home or self-care (01) | DRG 392 ==
LOC: CC.MS 12:41 → UNDOADMIN 12:41 → CC.MS 14:10
PROVIDERS: ADMIT Nurse Practitioner Family; ATTEND Nurse Practitioner Family
PROC: 0DB78ZX Excision of Stomach, Pylorus, Via Natural or Artificial Opening Endoscopic, Diagnostic (ICD-10-PCS; principal; 2024-09-03 07:45)
DX: K57.32 Diverticulitis of large intestine without perforation or abscess without bleeding (principal); K29.00 Acute gastritis without bleeding; Z66 Do not resuscitate; H54.7 Unspecified visual loss; E78.00 Pure hypercholesterolemia, unspecified; I10 Essential (primary) hypertension; G47.30 Sleep apnea, unspecified; K59.09 Other constipation; K58.9 Irritable bowel syndrome, unspecified; M10.9 Gout, unspecified; M81.0 Age-related osteoporosis without current pathological fracture; R63.0 Anorexia; R42 Dizziness and giddiness; E55.9 Vitamin D deficiency, unspecified; Z90.49 Acquired absence of other specified parts of digestive tract; Z95.0 Presence of cardiac pacemaker; Z88.8 Allergy status to other drugs, medicaments and biological substances; Z79.1 Long term (current) use of non-steroidal anti-inflammatories (NSAID); Z79.899 Other long term (current) drug therapy; Z88.1 Allergy status to other antibiotic agents; Z68.32 Body mass index [BMI] 32.0-32.9, adult
CPT/HCPCS: 36415; 80053; 81001; 82947; 83605; 83690; 85025; 86140; 87040; 87081; 97110-GP; 97161-GP; A9270-GY; J0692; J1650; J1836; J2704; J3010; J3490